=== PATIENT | female | born 1955 | race Caucasian/White ===

== ENCOUNTER 2020-02-26 14:11 | Emergency (ER) | payer OTHER, MEDICAID ==
[~2020-02-26] VITALS: Ht 165.1 cm; Wt 68.0 kg
[2020-02-26 14:14] VITALS: BP 145/81; Ht 165.1 cm; Wt 68.0 kg
== END 2020-02-26 17:19 | disposition home or self-care (01) ==
LOC: ED 14:11
DX: S13.4XXA Sprain of ligaments of cervical spine, initial encounter (principal); S33.5XXA Sprain of ligaments of lumbar spine, initial encounter; S76.912A Strain of unspecified muscles, fascia and tendons at thigh level, left thigh, initial encounter; M19.90 Unspecified osteoarthritis, unspecified site; M25.562 Pain in left knee; V49.59XA Passenger injured in collision with other motor vehicles in traffic accident, initial encounter; Y93.89 Activity, other specified; Y92.411 Interstate highway as the place of occurrence of the external cause; Y99.8 Other external cause status
CPT/HCPCS: J1885